=== PATIENT | male | born 1990 ===

== ENCOUNTER 2020-10-25 06:09 | Emergency (ER) | payer SELFPAY ==
[2020-10-25] MEDS ORDERED: SODIUM CHLORIDE 0.9% 1000 ML 1,000 ML IV ONE (09:28)
[2020-10-25] MEDS ORDERED: ONDANSETRON 4 MG/2 ML INJ IV ONE (09:28)
[2020-10-25] MEDS ORDERED: KETOROLAC 30 MG/1 ML INJ IV ONE (09:28)
--- NOTE | 2020-10-25 09:31 | Emergency Department Report ---
ED Abdominal Pain HPI - General Chief Complaint: Abdominal Pain Stated Complaint: VOMITING/LOWER BACK/STOMACH PAIN Time Seen by Provider: 10/25/20 08:19 Source: patient Mode of arrival: Ambulatory Limitations: Language Barrier - History of Present Illness Initial Comments: 30-year-old male, history of asthma, presents to ED with left flank pain x2 days. Patient reports onset of pain in the left lower back, radiating around to the left lower quadrant. He reports associated nausea and vomiting. He denies any fever, hematuria, urinary frequency, dysuria, testicular pain. Patient states he has never experienced this pain before. MD Complaint: flank pain -: days(s) (2) Location: L flank Radiation: LLQ Migration to: no migration Severity: moderate Quality: sharp Consistency: constant Improves With: nothing Worsens With: nothing Associated Symptoms: nausea, vomiting. denies: diarrhea, fever, dysuria, hematuria - Related Data Previous Rx's Medication Instructions Recorded Last Taken Type Naproxen [Naprosyn] 500 mg PO BID #20 tablet 10/25/20 Unknown Rx Tamsulosin [Flomax] 0.4 mg PO QDAY 7 Days #7 cap 10/25/20 Unknown Rx traMADoL [Ultram] 50 mg PO Q6HR PRN #7 tablet 10/25/20 Unknown Rx Allergies Allergy/AdvReac Type Severity Reaction Status Date / Time No Known Allergies Allergy Unverified 10/25/20 08:31 ED Review of Systems ROS: Stated complaint: VOMITING/LOWER BACK/STOMACH PAIN Other details as noted in HPI Comment: All other systems reviewed and negative Constitutional: denies: chills, fever Gastrointestinal: abdominal pain, nausea, vomiting. denies: diarrhea Genitourinary: denies: dysuria, frequency, hematuria Musculoskeletal: back pain ED Past Medical Hx - Past Medical History Previous Medical History?: No - Surgical History Past Surgical History?: No - Social History Smoking Status: Never Smoker Substance Use Type: None - Medications Home Medications: Home Medications Medication Instructions Recorded Confirmed Last Taken Type Naproxen [Naprosyn] 500 mg PO BID #20 tablet 10/25/20 Unknown Rx Tamsulosin [Flomax] 0.4 mg PO QDAY 7 Days #7 cap 10/25/20 Unknown Rx traMADoL [Ultram] 50 mg PO Q6HR PRN #7 tablet 10/25/20 Unknown Rx ED Physical Exam - General Limitations: Language Barrier General appearance: alert, in no apparent distress - Head Head exam: Present: atraumatic, normocephalic - Eye Eye exam: Present: normal appearance, EOMI - ENT ENT exam: Present: mucous membranes moist - Neck Neck exam: Present: normal inspection - Respiratory Respiratory exam: Present: normal lung sounds bilaterally. Absent: respiratory distress - Cardiovascular Cardiovascular Exam: Present: regular rate, normal rhythm - GI/Abdominal GI/Abdominal exam: Present: soft. Absent: distended, tenderness - Extremities Exam Extremities exam: Present: normal inspection - Back Exam Back exam: Absent: CVA tenderness (R), CVA tenderness (L) - Neurological Exam Neurological exam: Present: alert, oriented X3 - Psychiatric Psychiatric exam: Present: normal affect, normal mood - Skin Skin exam: Present: warm, dry, intact, normal color ED Course Vital Signs 10/25/20 10/25/20 10/25/20 06:43 08:26 08:31 Temperature 98.7 F Pulse Rate 76 62 Respiratory 16 12 Rate Blood Pressure 136/74 129/81 O2 Sat by Pulse 98 98 99 Oximetry 10/25/20 10/25/20 10/25/20 09:01 10:18 11:00 Temperature Pulse Rate 62 Respiratory 9 L 14 Rate Blood Pressure 126/71 121/79 121/58 O2 Sat by Pulse 100 99 97 Oximetry 10/25/20 10/25/20 10/25/20 11:30 12:01 12:31 Temperature Pulse Rate 67 55 L 57 L Respiratory 13 11 L 12 Rate Blood Pressure 117/58 117/58 117/58 O2 Sat by Pulse 97 99 Oximetry 10/25/20 13:01 Temperature Pulse Rate Respiratory Rate Blood Pressure 117/58 O2 Sat by Pulse 98 Oximetry ED Medical Decision Making - Lab Data Result diagrams: 10/25/20 11:22 10/25/20 11:22 - Radiology Data Radiology results: report reviewed, image reviewed - Medical Decision Making 30-year-old male presents to ED with left flank pain. Patient is afebrile. WBCs are normal. UA shows no evidence of infection. CT shows 6 mm stone in the proximal left ureter with mild hydronephrosis. There is also a 2 mm stone in the proximal right ureter without hydronephrosis. Renal function is normal. Patient informed of CT results. He now informs me that he has had previous kidney stones in the past. States his last one was 8 mm and it passed on its o wn. Patient is feeling much better following IV fluids and pain medication. Patient will be discharged with prescriptions at this time and advised to follow-up with the urologist. Return precautions given. - Differential Diagnosis Kidney stone, pyelonephritis Critical care attestation.: If time is entered above; I have spent that time in minutes in the direct care of this critically ill patient, excluding procedure time. ED Disposition Clinical Impression: Kidney stones, Renal colic on left side Disposition: DC- TO HOME OR SELFCARE Is pt being admited?: No Condition: Stable Instructions: Kidney Stones, [id number], Dietary Guidelines to Help Prevent Kidney Stones Prescriptions: Tamsulosin [Flomax] 0.4 mg PO QDAY 7 Days #7 cap Naproxen [Naprosyn] 500 mg PO BID #20 tablet traMADoL [Ultram] 50 mg PO Q6HR PRN #7 tablet PRN Reason: Pain Referrals: ULISES TIRADO MD [Staff Physician] - 3-[address] [facility] [Provider Group] - 3-5 Days Time of Disposition: 12:39
--- NOTE | 2020-10-25 10:41 | Cat Scan Report ---
CT ABDOMEN AND PELVIS WITHOUT CONTRAST HISTORY: left flank pain. COMPARISON: None. TECHNIQUE: CT images of the abdomen and pelvis were obtained without administration of intravenous co ntrast. All CT scans at this location are performed using CT dose reduction for ALARA by means of au tomated exposure control. FINDINGS: Lungs/bones: Lung bases are clear. No acute osseous abnormality identified. Abdomen/pelvis: There is a 6 mm stone in the proximal left ureter with mild hydronephrosis and surro unding inflammation. No left-sided renal mass or cyst identified. There is nonobstructive nephrolithi asis measuring 2 mm in the midpole the right kidney with a 2 mm stone in the proximal right ureter bu t no hydronephrosis or inflammation. The liver, gallbladder, spleen, pancreas, adrenals, and proximal GI tract appear unremarkable. The urinary bladder and prostate are unremarkable with no pelvic free fluid and no acute colonic abno rmality identified. IMPRESSION: 1. 6 mm stone in the proximal left ureter with mild hydronephrosis and inflammation. 2. 2 mm stone in the proximal right ureter without hydronephrosis or inflammation. Signer Name: Omar Donato MD Signed: 10/25/2020 10:36 AM Workstation Name: [id number]
[2020-10-25 11:56] LABS: Basophils % (Auto) 0.2 % (0.0-1.8); Eosinophils % (Auto) 0.1 % (0.0-4.3); Hematocrit 42.2 % (35.5-45.6); Hemoglobin 14.7 gm/dl (11.8-15.2); Lymphocytes # (Auto) 1.4 K/mm3 (1.2-5.4); Lymphocytes % (Auto) 16.1 % (13.4-35.0); Mean Corpuscular HGB Conc 35 % (32-34); Mean Corpuscular Volume 87 fl (84-94); Monocytes # (Auto) 0.7 K/mm3 (0.0-0.8); Monocytes % (Auto) 8.6 % (0.0-7.3); Platelet Count 225 K/mm3 (140-440); Red Blood Count 4.87 M/mm3 (3.65-5.03); Red Cell Distribution Width 12.9 % (13.2-15.2)
[2020-10-25 12:15] LABS: Bilirubin,Urine NEG (Negative); Blood,Urine LG (Negative); Calcium Oxalate Crystals,Urine 1+; Color,Urine Yellow (Yellow); Mucus,Urine FEW /HPF; Urobilinogen,Urine < 2.0 mg/dL (<2.0)
[2020-10-25 12:15] LABS: Alanine Aminotransferase 28 units/L (7-56); Albumin 3.7 g/dL (3.9-5); BUN/Creatinine Ratio 11; Blood Urea Nitrogen 11 mg/dL (9-20); Calcium 8.5 mg/dL (8.4-10.2); Hemolysis Index 5
[2020-10-25 12:24] LABS: Bilirubin,Direct < 0.2 mg/dL (0-0.2)
[2020-10-25 12:26] VITALS: BP 117/58
== END 2020-10-25 13:33 | disposition home or self-care (01) ==
LOC: ED 06:09
DX: N23 Unspecified renal colic (principal); Z79.899 Other long term (current) drug therapy
CPT/HCPCS: 36415; 74176; 80048; 80076; 81001; 85025; 96361; 96374; 96375; 99284; J1885; J2405; J7030